=== PATIENT | male | born 1940 | race Hispanic/Latino ===

== ENCOUNTER 2023-06-14 11:12 | Observation (INO) | payer OTHER ==
[~2023-06-14] VITALS: Ht 160 cm; Wt 68.5 kg
[2023-06-14 11:44] LABS: HEMATOCRIT 35.7 % (42-54); MEAN CORPUSCULAR HEMOGLOBIN 31.3 pg (27.0-33.0); MEAN CORPUSCULAR HGB CONC 33.1 g/dL (32.0-36.0); MEAN CORPUSCULAR VOLUME 94.7 fL (79-99); RED BLOOD CELL COUNT(AUTO) 3.77 MIL/uL (4.50-6.20); RED CELL DISTRIBUTION WIDTH 13.8 % (11.0-15.5); WHITE BLOOD COUNT (AUTO) 10.1 K/uL (4.8-10.8)
[2023-06-14 11:54] LABS: CREATININE 1.2 mg/dL (0.5-1.5); POTASSIUM 4.1 mmol/L (3.5-5.1)
[2023-06-14 11:58] LABS: ALBUMIN 3.6 g/dL (3.5-5.0); BILIRUBIN,TOTAL 0.8 mg/dL (0.2-1.0)
[2023-06-14 12:01] LABS: ADD UA MICROSCOPIC YES
[2023-06-14 12:05] LABS: APPEARANCE,URINE CLEAR (CLEAR); BILIRUBIN,URINE NEGATIVE (NEGATIVE); COLOR,URINE YELLOW (YELLOW); GLUCOSE, URINE (UA) 30 mg/dL (NEGATIVE); KETONES,URINE 5 mg/dL (NEGATIVE); LEUKOCYTE ESTERASE ,URINE NEGATIVE Leu/uL (NEGATIVE); MUCUS,URINE RARE LPF (None Seen); NITRATE,URINE NEGATIVE (NEGATIVE); OCCULT BLOOD,URINE NEGATIVE (NEGATIVE); PROTEIN,URINE 30 mg/dL (NEGATIVE); RBC,URINE 0-1 /HPF (0-1); SQUAMOUS EPITHELIAL CELL,UR RARE /HPF (0-2); UROBILINOGEN,URINE 0.2 mg/dL (0.2-1.0); WBC,URINE 0-1 /HPF (0-1)
[2023-06-14] MEDS ORDERED: MAG/ALUM/SIMETH 30 ML UDCUP PO PRN (13:00)
[2023-06-14] MEDS ORDERED: ONDANSETRON 4MG INJ IVP PRN (13:00)
[2023-06-14] MEDS ORDERED: DIPHENHYDRAMINE HCL 25 MG CAPSULE PO PRN (13:00)
[2023-06-14] MEDS ORDERED: ACETAMINOPHEN 325 MG TAB PO PRN (13:00)
[2023-06-14] MEDS ORDERED: DILTIAZEM 125 MG/25 ML INJ 125 MG in 0.9%NACL 100ML 100 ML IV SCH (13:00)
[2023-06-14] MEDS ORDERED: ZOLPIDEM TARTRATE 5 MG TAB PO PRN (13:00)
[2023-06-14] MEDS ORDERED: METOPROLOL SUCCINATE 50 MG TAB.SR.24H PO ONE (13:31)
[2023-06-14] MEDS ORDERED: GLIP1TAB6 PO (15:44)
[2023-06-14] MEDS ORDERED: METO-408 PO (15:44)
[2023-06-14] MEDS ORDERED: SITA100T12 PO (15:44)
[2023-06-14] MEDS ORDERED: GABA-529 PO (15:44)
[2023-06-14] MEDS ORDERED: PRAV40TA3 PO (15:44)
[2023-06-14] MEDS ORDERED: APIX5TAB PO (15:44)
[2023-06-14] MEDS ORDERED: CLOP75TA32 PO (15:44)
[2023-06-14] MEDS ORDERED: ALBU2.5V2 IH (15:45)
[2023-06-14] MEDS ORDERED: BACL10TA PO (15:45)
[2023-06-14] MEDS ORDERED: INSU3INS3 SQ (15:45)
[2023-06-14] MEDS ORDERED: AMLO-257 PO (15:45)
[2023-06-14] MEDS ORDERED: APIXABAN 5 MG TABLET PO SCH ×2 (16:00→17:30)
[2023-06-14] MEDS ORDERED: ALBUTEROL 0.083% 2.5 MG/3 ML INH IH SCH (16:00)
[2023-06-14] MEDS ORDERED: PHARMACY COMMUNICATION MISC SCH (17:30)
[2023-06-14 18:00] VITALS: BP 125/89; PULSE 88; RESP 20; O2SAT 99
[2023-06-14 19:33] VITALS: BP 126/56; PULSE 57; RESP 16
[2023-06-14 20:00] VITALS: O2SAT 99
[2023-06-14] MEDS ORDERED: METOPROLOL SUCCINATE 50 MG TAB.SR.24H PO SCH (21:00)
[2023-06-15] VITALS (8 sets, daily range): BP systolic 120–146; BP diastolic 51–87; PULSE 50–95; RESP 16–20; O2SAT 97
[2023-06-15] MEDS ORDERED: DILTIAZEM 125 MG/25 ML INJ IV ONE (03:50)
[2023-06-15 04:45] LABS: BASOPHILS # (AUTO) 0.03 K/uL (0.00-0.20); BASOPHILS % (AUTO) 0.3 % (0.0-5.0); EOSINOPHILS # (AUTO) 0.06 K/uL (0.00-0.70); EOSINOPHILS % (AUTO) 0.6 % (0.0-8.0); HEMATOCRIT 34.8 % (42-54); IMMATURE GRANULOCYTE ABSOLUTE 0.06 K/uL (0-1); LYMPHOCYTES # (AUTO) 1.5 K/uL (1.0-4.8); LYMPHOCYTES % (AUTO) 14.8 % (21.0-51.0); MEAN CORPUSCULAR HGB CONC 32.2 g/dL (32.0-36.0); MEAN CORPUSCULAR VOLUME 96.4 fL (79-99); MONOCYTES % (AUTO) 9.5 % (3.0-13.0); NEUTROPHILS # (AUTO) 7.4 K/uL (1.8-7.7); NEUTROPHILS % (AUTO) 74.2 % (40.0-77.0); PLATELET COUNT (AUTO) 179 K/uL (130-400); RED BLOOD CELL COUNT(AUTO) 3.61 MIL/uL (4.50-6.20); RED CELL DISTRIBUTION WIDTH 13.8 % (11.0-15.5)
[2023-06-15 05:02] LABS: BILIRUBIN,DIRECT 0.2 mg/dL (0.0-0.3); BILIRUBIN,TOTAL 0.7 mg/dL (0.2-1.0); CREATININE 1.2 mg/dL (0.5-1.5); POTASSIUM 4.2 mmol/L (3.5-5.1); TOTAL PROTEIN, SERUM 6.1 g/dL (6.0-8.3)
[2023-06-15] MEDS ORDERED: INSULIN GLARGINE HUM REC ANLOG 100 UNIT SQ SCH (06:30)
[2023-06-15] MEDS: GLIPIZIDE METFORMIN PO SCH (09:00)
[2023-06-15] MEDS: GABAPENTIN 100 MG CAPSULE PO SCH (09:00)
[2023-06-15] MEDS ORDERED: METOPROLOL SUCCINATE 25 MG TAB.SR.24H PO SCH (09:00)
[2023-06-15] MEDS ORDERED: AMLODIPINE 5 MG TAB PO SCH (09:00)
[2023-06-15] MEDS ORDERED: INSULIN GLARGINE HUM REC ANLOG 15 UNIT SQ SCH (09:00)
[2023-06-15] MEDS: CLOPIDOGREL 75MG TAB PO SCH (09:00)
[2023-06-15] MEDS: BACLOFEN 10 MG TABLET PO SCH (09:00)
[2023-06-15] MEDS ORDERED: GLUCAGON 1MG KIT 1 MG ML IM PRN (11:00)
[2023-06-15] MEDS ORDERED: DEXTROSE 50%-WATER 50 ML DISP.SYRIN IV PRN (11:00)
[2023-06-15] MEDS ORDERED: GABA-529 PO ×2 (11:06)
[2023-06-15] MEDS ORDERED: SITA100T12 PO (11:06)
[2023-06-15] MEDS ORDERED: LISI40TA9 PO (11:06)
[2023-06-15] MEDS ORDERED: CLOP-31 PO (11:06)
[2023-06-15] MEDS ORDERED: GLIP1TAB6 PO (11:06)
[2023-06-15] MEDS ORDERED: APIX5TAB PO (11:06)
[2023-06-15] MEDS ORDERED: REGADENOSON 0.4 MG/5 ML PF SYG IVP ONE (11:30)
[2023-06-15] MEDS: INSULIN HUMULIN R 100 UNIT/ML 3ML SQ SCH ×3 (11:30→20:44)
[2023-06-15] MEDS ORDERED: Pravastatin Sodium 40 MG PO SCH (17:00)
[2023-06-15] MEDS: APIXABAN 5 MG TABLET PO SCH (20:49)
[2023-06-15] MEDS ORDERED: GABAPENTIN 100 MG CAPSULE PO SCH (21:00)
[2023-06-16 03:19] VITALS: BP 135/98; PULSE 101; RESP 18
[2023-06-16] MEDS: INSULIN HUMULIN R 100 UNIT/ML 3ML SQ SCH (07:02)
[2023-06-16 07:58] VITALS: BP 140/94; PULSE 95; RESP 16
[2023-06-16] MEDS: APIXABAN 5 MG TABLET PO SCH (08:45)
[2023-06-16] MEDS: GLIPIZIDE METFORMIN PO SCH (08:45)
[2023-06-16] MEDS: GABAPENTIN 100 MG CAPSULE PO SCH (08:47)
[2023-06-16] MEDS: BACLOFEN 10 MG TABLET PO SCH (08:47)
[2023-06-16] MEDS ORDERED: LISINOPRIL 40 MG TABLET PO SCH (09:00)
[2023-06-16] MEDS: CLOPIDOGREL 75MG TAB PO SCH (09:00)
[2023-06-16 09:15] VITALS: O2SAT 96
== END 2023-06-16 11:04 | disposition home or self-care (01) ==
LOC: EDH 11:12 → DIRECT 11:13 → 2DH 17:46
PROVIDERS: ADMIT Internal Medicine; ATTEND Internal Medicine
DX: I48.20 Chronic atrial fibrillation, unspecified (principal); I11.0 Hypertensive heart disease with heart failure; I50.21 Acute systolic (congestive) heart failure; E11.51 Type 2 diabetes mellitus with diabetic peripheral angiopathy without gangrene; I25.10 Atherosclerotic heart disease of native coronary artery without angina pectoris; E78.5 Hyperlipidemia, unspecified; Z79.01 Long term (current) use of anticoagulants; Z95.1 Presence of aortocoronary bypass graft; Z79.4 Long term (current) use of insulin; Z79.899 Other long term (current) drug therapy; Z98.890 Other specified postprocedural states; Z79.02 Long term (current) use of antithrombotics/antiplatelets
CPT/HCPCS: 96365; 84484; 80053; 85027; 82948 ×6; 81001; 36415 ×2; 93017; 78452; 93005 ×2; 96366 ×3; 80076; 80048; 85025; G0378 ×37; G0379; J3490 ×2; A9500 ×2; J2785; J1815; 96374